=== PATIENT | female | born 1995 | race Caucasian/White ===

== ENCOUNTER 2024-09-05 08:19 | Day surgery (SDC) | payer OTHER ==
[2024-09-04 16:03] VITALS: BMI 38.8
[2024-09-05] MEDS ORDERED: SUGAMMADEX SODIUM 200 MG/2 ML VIAL ONE (09:06)
[2024-09-05] MEDS ORDERED: Dexamethasone 4 mg/ml Vial ONE (09:06)
[2024-09-05] MEDS ORDERED: PROPOFOL 40 ML ONE (09:06)
[2024-09-05] MEDS ORDERED: fentaNYL 50 mcg/mL 1 mL Vial ONE ×3 (09:06→12:06)
[2024-09-05] MEDS ORDERED: Lidocaine 1% PF 5 ML VIAL ONE (09:06)
[2024-09-05] MEDS ORDERED: Ondansetron PF 4 MG/2 ML Vial ONE (09:06)
[2024-09-05] MEDS ORDERED: Rocuronium Bromide 10 MG/ML (10ML VIAL) ONE (09:06)
[2024-09-05] MEDS ORDERED: Dexamethasone 20 MG/5 ML VIAL ONE (09:10)
[2024-09-05 09:12] LABS: Hematocrit 39.7 % (34.9-44.5)
[2024-09-05] MEDS ORDERED: Oxymetazoline HCl 0.05% ( 15 ML ) ONE (09:20)
[2024-09-05] MEDS ORDERED: Midazolam HCl 2 mg/2 ml Vial ONE (09:21)
[2024-09-05] MEDS ORDERED: AFRIN NASAL MIST 15 ML BOT ONE (09:21)
[2024-09-05 09:24] LABS: BHCG - Serum Negative (NEGATIVE); Pregs Control Background? CLEAR/WHITE (CLR/WHITE); Pregs Control Bar Appear? YES (CONTROL BAR)
[2024-09-05] MEDS ORDERED: EPINEPHrine 1 MG/ML VIAL ONE (09:41)
[2024-09-05] MEDS ORDERED: Lidocaine 1% w/Epinephrine 1:200K 30 ML VIAL ONE (09:41)
[2024-09-05] MEDS ORDERED: methylPREDNISolone Acetate 40 mg/ml Vial ONE (10:11)
[2024-09-05] MEDS ORDERED: Bacitracin 1 PK ONE (11:05)
[2024-09-05] MEDS ORDERED: Hydrocodone-Acetamin 15 ML UDCUP ONE (12:36)
[2024-09-05] MEDS ORDERED: HYDROcodone/Acetaminophen 5/325 mg Tablet ONE (12:43)
== END 2024-09-05 13:40 | disposition home or self-care (01) ==
LOC: CSHSDC 08:19
PROVIDERS: ATTEND Specialist
PROC: 09TL8ZZ Resection of Nasal Turbinate, Via Natural or Artificial Opening Endoscopic (ICD-10-PCS; principal; 2024-09-05)
PROC: 09TQ8ZZ Resection of Right Maxillary Sinus, Via Natural or Artificial Opening Endoscopic (ICD-10-PCS; principal; 2024-09-05)
PROC: 09TR8ZZ Resection of Left Maxillary Sinus, Via Natural or Artificial Opening Endoscopic (ICD-10-PCS; principal; 2024-09-05)
PROC: 09TT8ZZ Resection of Left Frontal Sinus, Via Natural or Artificial Opening Endoscopic (ICD-10-PCS; principal; 2024-09-05)
PROC: 09BM4ZZ Excision of Nasal Septum, Percutaneous Endoscopic Approach (ICD-10-PCS; principal; 2024-09-05)
PROC: 09TS8ZZ Resection of Right Frontal Sinus, Via Natural or Artificial Opening Endoscopic (ICD-10-PCS; principal; 2024-09-05)
DX: J34.2 Deviated nasal septum (principal); J34.3 Hypertrophy of nasal turbinates; J01.81 Other acute recurrent sinusitis; E66.01 Morbid (severe) obesity due to excess calories; Z79.899 Other long term (current) drug therapy; Z98.890 Other specified postprocedural states; Z88.1 Allergy status to other antibiotic agents; Z88.2 Allergy status to sulfonamides; Z91.040 Latex allergy status; Z68.38 Body mass index [BMI] 38.0-38.9, adult
CPT/HCPCS: 36415; 84703; 85014; J0171; J1010; J1100; J2250; J2405; J2704; J3010